=== PATIENT | female | born 2000 | race Caucasian/White ===

== ENCOUNTER 2025-06-08 07:47 | Emergency (ER) | payer SELFPAY ==
[2025-06-08 07:51] VITALS: BP 121/82; PULSE 92; RESP 14; TEMP 36.6; O2SAT 100
--- NOTE | 2025-06-08 07:56 | ED_ITS ---
HPI - General Adult General Chief complaint: Skin/Abscess/Foreign Body Stated complaint: cyst on forehead Time Seen by Provider: 06/08/25 07:53 Source: patient Mode of arrival: ambulatory Limitations: no limitations History of Present Illness HPI narrative: 24-year-old otherwise healthy here with a complains of pain and swelling on the forehead since last night. Patient states that she had a small pimple which him up on Friday and now it is growing. Denies any fever or chills. Onset (ago): day(s) (1) Location: face (forehead) Severity: mild Pain Consistency: constant Relieving factors: none Exacerbating factors: none Associated symptoms: denies other symptoms Related Data Allergies Allergy/AdvReac Type Severity Reaction Status Date / Time latex Allergy Severe Unknown Verified 07/01/18 01:00 nut - unspecified Allergy Severe Unknown Verified 07/01/18 01:00 Review of Systems Review of Systems: All systems reviewed & are unremarkable except as noted in HPI and below Constitutional: Constitutional: Reports no additional constitutional com plaints Eyes: Eyes: Reports no additional eye complaints ENT: Reports system reviewed and no additional complaints, except as documented Cardiovascular: Cardiovascular: Reports no additional cardiovascular complaints Respiratory: Respiratory: Reports no additional respiratory complaints Gastrointestinal: Gastrointestinal: Reports no additional gastrointestinal complaints Musculoskeletal: Musculoskeletal: Reports no additional musculoskeletal complaints Integumentary/Breasts: Skin/Breast: Reports as per HPI Exam Narrative: GENERAL: Well-appearing, well-nourished, and in no acute distress. HEAD: Normocephalic, atraumatic. EYES: PERRLA and EOMI. ENT: Nares clear, no rhinorrhea or epistaxis. Mucous membranes moist. NECK: Supple. CHEST: Clear to auscultation. No respiratory distress. HEART: Regular rate and rhythm. No murmur heard. Normal peripheral pulses. EXTREMITIES: Normal range of motion. No edema. SKIN: Warm, dry, no rash. a small swelling on the right side of the forehead with a small scab NEURO: No focal deficits. Alert and oriented x3. PSYCH: Normal mood and affect. Discharge Plan Discharge Clinical Impression: Cellulitis Patient Disposition: Home Condition: Stable Instructions: Antibiotic Form, Cellulitis (ED) Additional Instructions: Take antibiotic as prescribed Patient Language: Malay Prescriptions: New doxycycline hyclate 100 mg tablet 100 mg PO BID Qty: 14 0RF Follow-up/Referrals: PHYSICIAN,LOAN SERVICES PROFESSIONAL [Primary Care Provider, Internal Medicine] Santo Plascencia MD [Physician, Family Practice] Time of Disposition: 08:01
--- OUTSIDE RECORDS SUMMARY | 2025-06-08 08:18 | XMS_ITS | Clinical Summary ---
Author Organization [facility] Address [address] [place] [address] Care Team Providers Care Sales Representative Supervisor Name Role Phone No, Physician Unavailable Parisa Brush Primary Care Provider [phone] Allergies Active Allergy Reactions Criticality Noted Date Comments Doxycycline Stomach upset Low 09/17/2019 Stomach/GI Upset Latex Anaphylaxis High 01/27/2022 Sulfa (Sulfonamide Antibiotics) Stomach upset Low 09/17/2019 Stomach/GI Upset Medications dextroamphetam ine-amphetamin e (ADDERALL) 5 mg tablet Take 1 tablet (5 mg total) by mouth daily Take one tablet daily every afternoon around 2 pm. 30 tablet 05/23/20 25 Active dextroamphetam ine-amphetamin e XR (ADDERALL XR) 25 mg 24 hr capsule Take 1 capsule (25 mg total) by mouth every morning 30 capsule 05/23/20 25 Active dextroamphetam ine-amphetamin e (ADDERALL) 5 mg tablet Take 1 tablet (5 mg total) by mouth daily Take one tablet daily every afternoon around 2 pm. 30 tablet 04/14/20 25 025 Discontinued dextroamphetam ine-amphetamin e XR (ADDERALL XR) 25 mg 24 hr capsule Take 1 capsule (25 mg total) by mouth every morning 30 capsule 04/14/20 25 025 Discontinued Active Problems Problem Noted Date Diagnosed Date Well adult exam 10/28/2024 Overview (10/28/2024): PMH: Last pap: DUE Last tdap: 1998, DUE Last influenza: Last COVID: Last eye exam: Overweight (BMI 25.0-29.9) 11/11/2023 Assessment & Plan (05/02/2025 12:59 PM CDT): Chronic. With weight loss over the last 1.5 years due to of daughter, returning to the gym and starting Adderall. - Continue to eat 3 meals per day. Monitor Assessment & Plan (10/28/2024 11:05 AM DIRECTOR BUILDING): BMI Follow-up includes: education provided. Assessment & Plan (11/11/2023 10:09 AM DIRECTOR BUILDING): BMI Follow-up includes: education provided. Attention deficit hyperactiv ity disorder (ADHD), combined type 11/11/2023 Assessment & Plan (05/02/2025 12:59 PM CDT): Chronic. Stable. Continue Adderall 25 mg ER daily and 5 mg booster in the afternoon. Considering increase in Adderall XR to 30 mg daily, she will let me know if this feels necessary in the next few months Controlled substance agreement completed today. Assessment & Plan (10/28/2024 11:15 AM DIRECTOR BUILDING): Chronic. Stable. Continue Adderall 25 mg ER daily and 5 mg booster in the afternoon. Urine drug screen completed today. Assessment & Plan (11/11/2023 10:08 AM DIRECTOR BUILDING): Chronic. Uncontrolled. Patient has not been on medications since prior to her and breastfeed (late 2020). Reviewed records from [facility]. - controlled substance agreement signed - we will restart Adderall 25 mg ER daily and 5 mg booster in the afternoon Hidradenitis suppurativa 11/11/2023 Assessment & Plan (05/02/2025 12:59 PM CDT): Chronic. Well-controlled. Has not had cysts for a few years. Monitor Assessment & Plan (10/28/2024 11:15 AM DIRECTOR BUILDING): Chronic. Well-controlled. Has not had cysts for a few years. Monitor Assessment & Plan (11/11/2023 10:09 AM DIRECTOR BUILDING): Chronic. Well-controlled. Has not had cysts for a few years. Monitor Borderline personality disorder 11/11/2023 Assessment & Plan (05/02/2025 12:59 PM CDT): Chronic. Stable. Patient to look into counseling with her new insurance plan. Assessment & Plan (10/28/2024 11:04 AM DIRECTOR BUILDING): Chronic. Stable. Patient to look into counseling with her new insurance plan Assessment & Plan (11/11/2023 10:10 AM DIRECTOR BUILDING): Chronic. PHQ-9 and sherry 7 mildly elevated. Stable. Patient is interested in counseling but is waiting a new insurance. Monitor. Resolved Problems Problem Noted Date Diagnosed Date Resolved Date Acute chorioamnionitis 04/28/202211/11 Overview (04/30/2022): 04/28/22, 6:00pm (SO): Temp 100.9 tachycardia for appr 1 hour BL 180. Did not have a fever when the tachycardia started No decels ROM at 9:28am Consulted with Dr Jacobsen Ampicillin 2 gm q6 IV and Gentamycin 5mg/kg q 24 hours ordered Tylenol 1000mg q 6 hr IUPC placed Pitocin at 18 mu decreased to 15 Cervix is 8/90/-1, ant lip is swollen, will give IV benadryl 25 mg Continue to monitor, if no cervical change in 2 hours, consider c/s 04/28/22, 0845pm (SO): tachycardia remains Temp 99.1 Cervix is a rim, feels reducible but did not go away with pushing Dr Jacobsen to come in and access 04/30/2022 (SK): Afebrile> 24 hours Completed 24 hours of ampicillin, gentamicin and clindamycin WBC 14.8 yesterday morning Uterus appropriately tender Normal labor 04/27/2022 11/11/2023 Overview (04/28/2022): 04/27/22, 6:40pm (SO): Reassuring status, is on the [place] wireless monitor VSS Reports contractions are getting stronger Is planning for minimal interventions Monitor well being. 04/27/22, 1030 (SO): Reasuring status VSS Has made no change since admission , posterior Will start pitocin augmentation Stadol for pain 04/28/22, 914 (SO): Reassuring status VSS AROM done with consent, scant clear fluid Pitocin is at 10 mu/min Is comfortable with epidural in place Anticipate 04/28/22, 21:00 (BD): - asked to consult on patient as she has had a very protracted labor course, despite adequate ctx pattern with IPC placed and per jowl trimmer's examination has a cervical rim that will not reduce and vertex that palpated asynclitic; additionally pt has been ruptured for 12hrs and has developed chorioamnionitis - with maternal tachy, tachy with minimal variability despite IV fluids, PO tylenol, and starting Amp/Gent - Offered to examine patient to try to reduce cervix and have push to an operative delivery station however pt is very much hurting and declines and wishes to proceed with C/S. - discussed risks/benefits/recovery of C/S - pt voiced understanding and ok proceeding. Written informed consent obtained - anesthesia consulted for spinal vs epidural bolus - will plan for 2g ancef and 500mg azithromycin pre-op; will also add 900mg Clindamycin to the Amp/gent regimen for chorioamnionitis post-op for 24hrs Encounter for supervision of normal , antepartum 01/28/2022 11/11/2023 Encounters Date Type Department Care Team Description 05/02/2025 12:30 PM CDT Office Visit [facility] [address] [place] [phone] Parisa Brush PA Attention deficit hyperactivity disorder (ADHD), combined type (Primary Dx); Borderline personality disorder (HCC); Hidradenitis suppurativa; Overweight (BMI 25.0-29.9) from Last 3 Months Immunizations Immunization Administration Dates Next Due DTaP 05/14/1999,03/14/1999,01/11/1999 Hep B / HiB 06/09/2000 Hep B, Adolescent or Pediatric 1998,1998 HiB 05/14/1999,03/14/1999,01/11/1999 IPV 03/14/1999,01/11/1999 Influenza, Unspecified 06/15/2024(Deferr ed: Patient decision),06/15/2023(Deferred: Patient decision),06/15/2022(Deferred: Patient decision) MMR 05/01/2022(Deferred: Contraindication - immune),06/09/2000 Meningococcal C Conjugate 04/24/2010 Tdap 03/15/2022 Varicella 04/24/2010,06/28/2002 Medical History Medical History Date Comments Allergic rhinitis Anxiety Depression HL (hearing loss) Ear pain Ear drainage Dizziness Tinnitus Acute chorioamnionitis 04/28/2022 04/28/22, 6:00pm (SO): Temp 100.9 tachycardia for appr 1 hour BL 180. Did not have a fever when the tachycardia started No decels ROM at 9:28am Consulted with Dr Jacobsen Ampicillin 2 gm q6 IV and Gentamycin 5mg/kg q 24 hours ordered Tylenol 1000mg q 6 hr IUPC placed Pitocin at 18 mu decreased to 15 Cervix is 8/-1, ant lip is swollen, will give IV benadryl 25 mg Continue to monito Encounter for supervision of normal , antepartum 01/28/2022 Normal labor 04/27/2022 04/27/22, 6:40pm (SO): Reassuring status, is on the [employer] wireless monitor VSS Reports contractions are getting stronger Is planning for minimal interventions Monitor well being. 04/27/22, 1030 (SO): Reasuring status VSS Has made no change since admission /-2, posterior Will start pitocin augmentation Stadol for pain 04/28/22, 0915 (SO): Reassuring status VSS Family History Medical History Relation Name Comments No Known Problems Father Diabetes Maternal Grandfather Heart disease Maternal Grandfather Hypertension Maternal Grandfather Stroke Maternal Grandmother No Known Problems Mother Breast cancer Paternal Grandmother Colon cancer Neg Hx Ovarian cancer Neg Hx Uterine cancer Neg Hx Relation Name Status Comments Father Maternal Grandfather Maternal Grandmother Mother Paternal Grandmother Social History Tobacco Use Types Packs/Day Years Used Date Smoking Tobacco: Never Cigarillos Vaping Smokeless Tobacco: Never Tobacco Cessation:Counseling Given: Not Answered Alcohol Use Standard Drinks/Week Comments Never 0 (1 standard drink = 0.6 oz pur e alcohol) PHQ-2 Answer Date Recorded PHQ-2 Total Score (If total score is 3 or more points, staff should administer the PHQ-9) 0 05/02/2025 [place] Depression Scale Answer Date Recorded [place] Depression Scale Total 4 06/14/2022 The thought of harming myself has occurred to me . Never 06/14/2022 AUDIT-C Answer Date Recorded Q1: How often do you have a drink containing alcohol? Never 05/02/2025 Q2: How many drinks containi ng alcohol do you have on a typical day when you are drinking? Patient does not drink Q3: How often do you have si x or more drinks on one occasion? Never 05/02/2025 Personal Safety Answer Date Recorded Have you ever been in or are you currently in a harmful physical or emotional relationship or is someone making you feel afraid or unsafe? Denies 09/20/2023 Comments No Sex and Gender Information Value Date Recorded Sex Assigned at Not on file Legal Sex Female 3:35 PM DIRECTOR BUILDING Gender Identity Female 01/29/2022 1:08 AM CDT Sexual Orientation Bisexual 01/29/2022 1: 08 AM CDT Obstetrics History Para Term AB IAB SAB Ectopic Multiple Livin g Live Births 3 1 1 0 2 0 2 0 0 1 1 Date Outcome GA Total Labor Labor/2nd/3rd Weight Sex Type Anes PTL Angela A1 A5 Name Clin 2020 SAB SAB 2020 SAB SAB 2021 Term 41w 0d 0h 02m 0h 02m 3.535 kg (7 lb 12.7 oz) F CS-LT ranv Epidur al N Livin g 8 9 STADT S,GIR LKPATRICIA Jacobsen, Angélica Hampton MD Complications:Intraamniotic Infection, Intolerance Delivery Location:[facility] ([facility] L AND D PROCEDURE) Last Filed Vital Signs Vital Sign Reading Time Taken Comments Blood Pressure 110/70 05/02/2025 12:37 PM CDT Pulse 103 05/02/2025 12:37 PM CDT Temperature 36.1 C (97 F) 05/02/2025 12:37 PM CDT Respiratory Rate 16 05/02/2025 12:37 PM CDT Oxygen Saturation 98% 05/02/2025 12:37 PM CDT Inhaled Oxygen Concentration - - Weight 68.5 kg (151 lb) 05/02/2025 12:37 PM CDT Height 161.3 cm (5' 3.5) 05/02/2025 12:37 PM CD T Body Mass Index 26.33 05/02/2025 12:37 PM CDT Plan of Treatment Health Maintenance Due Date Last Done Comments Cervical Cancer Screening 1998 Hepatitis C Screening 1998 HPV Vaccines (1 - 3-dose series) 2013 Regular Well Visit/Exam 18-64 2016 Influenza Vaccine (#1) 2025 Depression Screening 05/02/2026 05/02/2025, 11/11/2023, 11/11/2023, Additional history exists DTaP/Tdap/Td Vaccine (5 - Td or Tdap) 03/15/2032 03/15/2022, 05/14/1999, 03/14/1999, Additional history exists Hepatitis B Screening Completed 06/09/2000 , 1998, 1998 Varicella Vaccines Completed 04/24/2010, 06/28/2002 Pneumococcal vaccine <65 Aged Out No longer eligible based on patient's age to complete this topic Insurance [facility] Advance Directives For more information, please contact: [phone] * Full Code (Latest Code Status on File) Date Activated Date Inactivated Comments 04/28/2022 11:21 PM 05/01/2022 7:15 PM * Full Code Date Activated Date Inactivated Comments 04/27/2022 10:42 AM 04/28/2022 11:21 PM Full CPR i n case of cardiopulmonary arrest Care Teams Sales Representative Supervisor Relationship Specialty Start Date End Date Parisa Brush PA [address] [place] [address] PCP - General Family Medicine 11/11/23 No, Physician 09/09/21
[2025-06-08 08:31] VITALS: BP 121/80; PULSE 90; RESP 16; TEMP 36.6; O2SAT 100
== END 2025-06-08 08:38 | disposition home or self-care (01) ==
LOC: ANHED 08:07
PROVIDERS: Emergency Provider Family Medicine
DX: L03.211 Cellulitis of face (principal)
CPT/HCPCS: 99283